=== PATIENT | male | born 1955 | race Two or more races ===

== ENCOUNTER 2017-07-07 16:15 | Inpatient (IN) | payer OTHER ==
[~2017-07-07] VITALS: Ht 180.3 cm; Wt 135.6 kg
[2017-07-07] MEDS ORDERED: ENALAPRILAT 1.25 MG/ML-1ML VIAL IV ONE (16:30)
[2017-07-07 16:46] LABS: Basophils # (auto) 0.1 uL; Basophils % (auto) 0.6 % (0.0-2.0); Eosinophils # (auto) 0.3 uL; Eosinophils % (auto) 3.2 % (0.0-7.0); Hemoglobin 11.4 g/dL (13.5-17.5); Lymphocytes % (auto) 10.8 % (10.0-50.0); Mean Corpuscular Hemoglobin 30.1 pg (28.0-32.0); Mean Corpuscular Hgb Conc. 32.6 g/dL (32.0-36.0); Mean Corpuscular Volume 92.4 fL (80.0-100.0); Monocytes # (auto) 0.6 uL; Monocytes % (auto) 6.5 % (0.0-12.0); Neutrophils # (auto) 7.3 uL; Neutrophils % (auto) 78.9 % (37.0-80.0); Platelet Count (auto) 236 10^3/uL (140-450); Red Blood Cells 3.79 10^6/uL (4.5-5.90); Red Cell Distribution Width 15.2 % (11.8-14.3); White Blood Cell 9.3 10^3/uL (4.4-10.8)
[2017-07-07] MEDS: NITROGLYCERIN 50MG/250ML 250 ML IV SCH (16:51)
[2017-07-07 16:59] LABS: INR 0.93 (0.9-1.15); Partial Thromboplastin Time 22.3 sec (23.78-33.04)
[2017-07-07] MEDS ORDERED: FUROSEMIDE 40 MG/4 ML VIAL IV ONE (17:00)
[2017-07-07 17:04] LABS: Alanine Aminotransferase 21 U/L (16-61); Albumin 2.5 g/dL (3.4-5.0); Anion Gap 9 (5-15); BUN/Creatinine Ratio 14.8; Blood Urea Nitrogen 77 mg/dL (7-18); Calcium 7.6 mg/dL (8.5-10.1); Carbon Dioxide 19 mmol/L (21-32); Chloride 113 mmol/L (98-107); GFR African American 14 mL/min; GFR Non-African American 12 mL/min; Glucose 160 mg/dL (74-106); Potassium 5.1 mmol/L (3.5-5.1); Sodium 141 mmol/L (136-145)
[2017-07-07 17:07] LABS: Alkaline Phosphatase 103 U/L (45-117); Aspartate Aminotransferase 28 U/L (15-37); Bilirubin, Total 0.1 mg/dL (0.2-1.0); Total Protein 7.1 g/dL (6.4-8.2)
[2017-07-08] VITALS (84 sets, daily range): BP systolic 112–203; BP diastolic 49–118
[2017-07-08] MEDS ORDERED: MORPHINE SULFATE 8mg/ml INJ SDV IV PRN (00:45)
[2017-07-08] MEDS ORDERED: NITROGLYCERIN 0.4 MG SL TAB SL PRN (00:45)
[2017-07-08 04:11] LABS: Basophils # (auto) 0 uL; Basophils % (auto) 0.5 % (0.0-2.0); Eosinophils # (auto) 0.1 uL; Eosinophils % (auto) 1.7 % (0.0-7.0); Hematocrit 29.1 % (41.0-53.0); Hemoglobin 9.6 g/dL (13.5-17.5); Lymphocytes # (auto) 0.8 uL; Mean Corpuscular Hemoglobin 30.1 pg (28.0-32.0); Mean Corpuscular Volume 91.5 fL (80.0-100.0); Monocytes # (auto) 0.9 uL; Monocytes % (auto) 10.6 % (0.0-12.0); Neutrophils # (auto) 6.4 uL; Neutrophils % (auto) 77.2 % (37.0-80.0); Platelet Count (auto) 241 10^3/uL (140-450); Red Blood Cells 3.18 10^6/uL (4.5-5.90); Red Cell Distribution Width 15.1 % (11.8-14.3); White Blood Cell 8.3 10^3/uL (4.4-10.8)
[2017-07-08 04:26] LABS: Calcium 7.5 mg/dL (8.5-10.1); Potassium 5.1 mmol/L (3.5-5.1)
[2017-07-08] MEDS: NITROGLYCERIN 50MG/250ML 250 ML IV SCH ×7 (04:36→23:18)
[2017-07-08] MEDS ORDERED: ONDANSETRON HCL 4 MG/2 ML VIAL IV PRN (06:15)
[2017-07-08] MEDS ORDERED: HYDROcodone-ACET 5/325MG TAB PO PRN (06:15)
[2017-07-08] MEDS ORDERED: hydrALAZINE HCL 25 MG TAB PO ONE (06:15)
[2017-07-08] MEDS ORDERED: ACETAMINOPHEN 500 MG TAB PO PRN (06:15)
[2017-07-08] MEDS: hydrALAZINE HCL 25 MG TAB PO SCH ×2 (08:56→21:33)
[2017-07-08 09:00] LABS: Urine Bacteria FEW /hpf (None Seen); Urine Blood 1+ /uL (Negative); Urine WBC 1 /hpf (0 - 3)
[2017-07-08] MEDS: CARVEDILOL 3.125 MG TAB PO SCH ×2 (09:58→21:35)
[2017-07-08] MEDS ORDERED: FUROSEMIDE 40 MG/4 ML VIAL IV SCH (10:00)
[2017-07-08] MEDS ORDERED: hydrALAZINE HCL 25 MG TAB PO SCH (10:00)
[2017-07-08] MEDS ORDERED: DEXTROSE (50%) 50ML SYRG IV PRN ×2 (10:30→20:45)
[2017-07-08] MEDS ORDERED: ATORVASTATIN 20 MG TAB PO ONE (10:30)
[2017-07-08] MEDS ORDERED: ASPirin 81 mg TAB PO ONE (10:30)
[2017-07-08] MEDS: cloNIDine HCL 0.1 MG TAB PO PRN ×2 (10:54→18:50)
[2017-07-08] MEDS ORDERED: METO-158 PO (11:28)
[2017-07-08] MEDS ORDERED: SIMV-13 PO (11:28)
[2017-07-08] MEDS ORDERED: HYDR50TA15 PO (11:28)
[2017-07-08] MEDS ORDERED: AMLO5TAB2 PO (11:28)
[2017-07-08] MEDS ORDERED: SODI650T PO (11:28)
[2017-07-08] MEDS: InsuLIN REG 1unit/0.01ml Soln (100units/ml) SC SCH ×3 (12:24→23:32)
[2017-07-08] MEDS: ACCU-CHEK COMFORT CURVE STRIP VI SCH ×3 (12:26→23:32)
[2017-07-08] MEDS ORDERED: ALBUTEROL SULF 2.5 MG/0.5ML(0.5%) NEB SOLN NEB ONE (14:30)
[2017-07-08] MEDS: FUROSEMIDE 40 MG/4 ML VIAL IV SCH (17:59)
[2017-07-08] MEDS: SODIUM BICARBONATE 650 MG TAB PO SCH (21:33)
[2017-07-08] MEDS ORDERED: ATORVASTATIN 20 MG TAB PO SCH (22:00)
[2017-07-09] VITALS (75 sets, daily range): BP systolic 98–184; BP diastolic 36–91
[2017-07-09] MEDS: NITROGLYCERIN 50MG/250ML 250 ML IV SCH (02:00)
[2017-07-09 04:08] LABS: Basophils # (auto) 0 uL; Basophils % (auto) 0.4 % (0.0-2.0); Eosinophils # (auto) 0.3 uL; Eosinophils % (auto) 3.7 % (0.0-7.0); Hematocrit 25.5 % (41.0-53.0); Hemoglobin 8.7 g/dL (13.5-17.5); Lymphocytes # (auto) 0.8 uL; Lymphocytes % (auto) 8.8 % (10.0-50.0); Mean Corpuscular Hemoglobin 30.5 pg (28.0-32.0); Mean Corpuscular Hgb Conc. 33.9 g/dL (32.0-36.0); Mean Corpuscular Volume 89.9 fL (80.0-100.0); Monocytes # (auto) 1.2 uL; Monocytes % (auto) 13.4 % (0.0-12.0); Neutrophils # (auto) 6.7 uL; Neutrophils % (auto) 73.7 % (37.0-80.0); Platelet Count (auto) 224 10^3/uL (140-450); Red Blood Cells 2.84 10^6/uL (4.5-5.90); Red Cell Distribution Width 14.6 % (11.8-14.3)
[2017-07-09 04:28] LABS: Calcium 7.4 mg/dL (8.5-10.1); Potassium 5.3 mmol/L (3.5-5.1)
[2017-07-09 04:30] LABS: BUN/Creatinine Ratio 14.3
[2017-07-09 04:32] LABS: Bilirubin, Total 0.3 mg/dL (0.2-1.0); Total Protein 5.8 g/dL (6.4-8.2)
[2017-07-09] MEDS: InsuLIN REG 1unit/0.01ml Soln (100units/ml) SC SCH ×3 (06:00→18:41)
[2017-07-09] MEDS: ACCU-CHEK COMFORT CURVE STRIP VI SCH ×3 (06:00→18:40)
[2017-07-09] MEDS: FUROSEMIDE 40 MG/4 ML VIAL IV SCH ×2 (06:00→18:41)
[2017-07-09] MEDS: hydrALAZINE HCL 25 MG TAB PO SCH (06:00)
[2017-07-09] MEDS ORDERED: CALCIUM GLUC 4.65meq/50ml D5AE 50 ML IV ONE (08:45)
[2017-07-09] MEDS ORDERED: SODIUM BICARBONATE 8.4% INJ 50ML SYRINGE IV ONE (08:45)
[2017-07-09] MEDS ORDERED: NOREPINEPHRINE 8 MG/250ML KIT 250 ML IV SCH (09:23)
[2017-07-09] MEDS ORDERED: LACTATED RINGER'S 1,000 ML IV ONE (09:30)
[2017-07-09] MEDS ORDERED: ASPirin 81 mg TAB PO SCH (10:00)
[2017-07-09] MEDS ORDERED: POTASSIUM CHL 20 Meq TABLET PO SCH (10:00)
[2017-07-09] MEDS: SODIUM BICARBONATE 650 MG TAB PO SCH (10:47)
[2017-07-09] MEDS: CARVEDILOL 3.125 MG TAB PO SCH (10:47)
[2017-07-09] MEDS: cloNIDine HCL 0.1 MG TAB PO PRN (10:52)
[2017-07-09] MEDS ORDERED: NIFEdipine ER 30 MG TAB PO ONE (12:30)
[2017-07-09] MEDS ORDERED: BUMETANIDE (0.25MG/ML) 4 ML VIAL IV ONE (12:30)
[2017-07-09] MEDS ORDERED: hydrALAZINE HCL 25 MG TAB PO SCH ×2 (14:00→18:00)
[2017-07-09] MEDS ORDERED: ISOSORBIDE MONONITRATE 60 MG TAB PO SCH (22:00)
[2017-07-09] MEDS ORDERED: NIFEdipine ER 30 MG TAB PO SCH (22:00)
== END 2017-07-09 19:38 | disposition short-term general hospital (02) | DRG 189 ==
LOC: ER 16:16 → TELE 16:17 → ICU WEST 07-08 02:25
PROVIDERS: ADMIT Nurse Practitioner Family; ATTEND Nurse Practitioner Family
DX: J96.00 Acute respiratory failure, unspecified whether with hypoxia or hypercapnia (principal); I13.2 Hypertensive heart and chronic kidney disease with heart failure and with stage 5 chronic kidney disease, or end stage renal disease; E11.22 Type 2 diabetes mellitus with diabetic chronic kidney disease; E87.2 Acidosis; E11.65 Type 2 diabetes mellitus with hyperglycemia; I50.33 Acute on chronic diastolic (congestive) heart failure; N18.6 End stage renal disease; D64.9 Anemia, unspecified; E21.3 Hyperparathyroidism, unspecified; E66.9 Obesity, unspecified; E87.5 Hyperkalemia; Z79.84 Long term (current) use of oral hypoglycemic drugs; Z79.82 Long term (current) use of aspirin; Z79.899 Other long term (current) drug therapy
CPT/HCPCS: 36415; 36600; 71045; 80048; 80053; 81001; 82805; 82962; 83036; 83735; 83880; 84484; 85025; 85610; 85730; 87081; 93306; 94660; 96374; 96375; 99291; J0610; J1815

== ENCOUNTER 2018-06-11 14:01 | Inpatient (IN) | payer OTHER ==
[~2018-06-11] VITALS: Ht 180.3 cm; Wt 118.3 kg
[~2018-06-11 14:01] MED LIST: AMLO5TAB13 PO; HYDR50TA15 PO; METO-158 PO; SIMV-13 PO; SODI650T PO
[2018-06-11 14:49] LABS: Basophils # (auto) 0.1 uL; Basophils % (auto) 1.4 % (0.0-2.0); Platelet Count (auto) 179 10^3/uL (140-450)
[2018-06-11 14:51] LABS: Eosinophils # (auto) 0.1 uL; Eosinophils % (auto) 1.9 % (0.0-7.0); Hemoglobin 10.9 g/dL (13.5-17.5); Lymphocytes # (auto) 0.6 uL; Lymphocytes % (auto) 9.5 % (10.0-50.0); Mean Corpuscular Hemoglobin 23.2 pg (28.0-32.0); Mean Corpuscular Hgb Conc. 28.8 g/dL (32.0-36.0); Mean Corpuscular Volume 80.6 fL (80.0-100.0); Monocytes # (auto) 0.4 uL; Monocytes % (auto) 6.2 % (0.0-12.0); Neutrophils # (auto) 5.1 uL; Nucleated Red Blood Cells % 0.1 %; Red Blood Cells 4.72 10^6/uL (4.5-5.90); White Blood Cell 6.2 10^3/uL (4.4-10.8)
[2018-06-11 14:52] LABS: Chloride 114 mmol/L (98-107); Sodium 143 mmol/L (136-145)
[2018-06-11 14:56] LABS: Albumin 2.8 g/dL (3.4-5.0); Anion Gap 7 (5-15); Blood Alcohol < 3.0 mg/dL (0-5); Calcium 7.8 mg/dL (8.5-10.1); Carbon Dioxide 22 mmol/L (21-32); Glucose 103 mg/dL (74-106); Magnesium 2.7 mg/dL (1.6-2.6)
[2018-06-11 14:59] LABS: Alanine Aminotransferase 8 U/L (16-61); Aspartate Aminotransferase 10 U/L (15-37); BUN/Creatinine Ratio 19.4; Bilirubin, Total 0.3 mg/dL (0.2-1.0); GFR African American 13 mL/min; GFR Non-African American 11 mL/min; Total Protein 7.7 g/dL (6.4-8.2)
[2018-06-11 15:01] LABS: Alkaline Phosphatase 96 U/L (45-117)
[2018-06-11 15:07] LABS: Potassium 5.6 mmol/L (3.5-5.1)
[2018-06-11 15:08] LABS: Blood Urea Nitrogen 111 mg/dL (7-18)
[2018-06-11] MEDS ORDERED: ALBUTEROL SULF 2.5 MG/0.5ML(0.5%) NEB SOLN NEB STA (15:23)
[2018-06-11] MEDS ORDERED: InsuLIN REG 1unit/0.01ml Soln (100units/ml) IV ONE (15:30)
[2018-06-11] MEDS ORDERED: SODIUM BICARBONATE 8.4% INJ 50ML SYRINGE IV ONE (15:30)
[2018-06-11] MEDS ORDERED: CALCIUM GLUC 4.65meq/50ml D5AE 50 ML IV ONE (15:30)
[2018-06-11] MEDS ORDERED: DEXTROSE (50%) 50ML SYRG IV ONE (15:30)
[2018-06-11] MEDS ORDERED: SODIUM ZIRCONIUM CYCL 10 GM PAK PO ONE (16:15)
[2018-06-11] MEDS ORDERED: ENOXAPARIN SOD 30 MG/0.3 ML SYRINGE SC ONE (16:45)
[2018-06-11] MEDS ORDERED: NITROGLYCERIN 0.4 MG SL TAB SL PRN (16:45)
[2018-06-11] MEDS ORDERED: MORPHINE SULF INJ 2 MG/ML SYRINGE 1ML IV PRN (16:45)
[2018-06-11] MEDS ORDERED: FUROSEMIDE 100 MG/10ML VIAL IV ONE (17:00)
[2018-06-11] MEDS: CLINDAMYCIN 300MG IV 50 ML IV SCH (17:19)
[2018-06-11 18:21] LABS: Albumin 2.8 g/dL (3.4-5.0); Calcium 8.1 mg/dL (8.5-10.1); Potassium 5.3 mmol/L (3.5-5.1)
[2018-06-11 18:26] LABS: BUN/Creatinine Ratio 20.5; Bilirubin, Total 0.3 mg/dL (0.2-1.0); Total Protein 7.7 g/dL (6.4-8.2)
[2018-06-11] MEDS ORDERED: MIDAZOLAM DRIP 50 mg/50mL 50 ML IV ONE (18:27)
[2018-06-11] MEDS ORDERED: SUCCINYLCHOLINE CHLORIDE 20 MG/ML 10ML VIAL IV ONE ×2 (18:27→19:00)
[2018-06-11] MEDS ORDERED: ETOMIDATE (2MG/ML) 20ML VIAL IV ONE ×2 (18:27→19:00)
[2018-06-11] MEDS ORDERED: fentaNYL CITRATE 100 MCG/2 ML VL ONE (19:10)
[2018-06-11] MEDS ORDERED: fentaNYL Drip 2500mCg/250mlNS 250 ML IV ONE (19:10)
[2018-06-11] MEDS: MIDAZOLAM DRIP 50 mg/50mL 50 ML IV SCH (19:28)
[2018-06-11] MEDS ORDERED: LEVOFLOXACIN 500MG 100 ML IV SCH (19:30)
[2018-06-11] MEDS: fentaNYL Drip 2500mCg/250mlNS 250 ML IV SCH (20:01)
[2018-06-11 20:36] LABS: Urine Bacteria FEW /hpf (None Seen); Urine Blood TRACE /uL (Negative); Urine Hyaline Cast FEW /lpf (0 - 2); Urine Specific Gravity 1.013 (1.001-1.035); Urine WBC 52 /hpf (0 - 3); Urine WBC Clumps PRESENT /hpf (None Seen)
[2018-06-11] MEDS ORDERED: NOREPINEPHRINE 8 MG/250ML KIT 250 ML IV ONE (21:27)
[2018-06-11 21:45] VITALS: BP 89/53
[2018-06-11] MEDS ORDERED: NOREPINEPHRINE 8 MG/250ML KIT 250 ML IV SCH (21:45)
[2018-06-11] MEDS: BUMETANIDE (0.25MG/ML) 4 ML VIAL IV SCH (21:53)
--- NOTE | 2018-06-11 22:50 | NUR ---
Pt being admitted to ICU IRISJOHNNIE NEWBY admitted to ICU via rney on otolaryngology teacher and mechanical ventilator. Patient transferred to bed, connected to ICU monitoring and oxygen. ASSESSMENT: RECEIVED PT SEDATED ON VERSED AND FENTANYL. MECHANICALLY VENTILATED. PT DOES NOT OPEN EYES TO STIMULI. LEVOPHED INFUSING AT 2MCG/HR. B/P IN 130'S WILL TITRATE OFF TOLERATED. PLACED RECTAL THERMOMETER IN DUE TO UNABLE TO OBTAIN TEMPERATURE WITH PROBE. TEMPERATURE 94.0 AT THIS TIME. WARMING MEASURES APPLIED. WILL SPONTANEOUSLY MOVE EXTREMITIES. COLOSTOMY TO LEFT LOWER QUADRANT DRAINING LIGHT BROWN LIQUID. CHILDRESS IN PLACE DRAINING LIGHT YELLOW URINE. FULL ASSESSMENT DONE SEE INTERVENTIONS. SKIN ASSESSMENT DONE SEE SKIN ASSESSMENT. ALL ALARMS ON AND AUDIBLE. PT IN FULL VIEW OF RN.
--- NOTE | 2018-06-11 23:09 | NUR ---
RT NOTE RT RESPONDED TO OVERHEAD PAGE STAT TO ER. RT RESPONDED WITH RT NAOMY. WHEN WE ARRIVED TO ER WE WERE TOLD BY STAFF THAT THEY HAD BEEN TRYING TO PAGE US FOR SOME TIME NOW. NEITHER MYSELF OR RT NAOMY HAD RECEIVED ANY PAGE PRIOR TO THE OVERHEAD PAGE. PT WAS WAITING TO BE TRANSPORTED TO ICU. PT WAS TRANSPORTED AND PLACED BACK ON VENT IN ICU WITHOUT INCIDENT.
--- NOTE | 2018-06-11 23:30 | NUR ---
FAMILY AT BED SIDE.
[2018-06-12] VITALS (105 sets, daily range): BP systolic 87–147; BP diastolic 37–68
--- NOTE | 2018-06-12 00:30 | NUR ---
OBTAINED TELEPHONE CONSENT FOR DIALYSIS CATHETER INSERTION, IF POSSIBLE PLACEMENT NEEDED. . VALERIO, VERBALIZED UNDERSTANDING ANG GAVE CONSENT, WITH 2 NURSE VERIFICATION.
[2018-06-12] MEDS: CLINDAMYCIN 300MG IV 50 ML IV SCH ×3 (00:46→17:47)
[2018-06-12] MEDS: SODIUM ZIRCONIUM CYCL 10 GM PAK PO SCH ×4 (00:46→17:48)
[2018-06-12] MEDS ORDERED: SEVE800T10 PO (01:47)
[2018-06-12] MEDS ORDERED: CLON0.1D7 TD (01:47)
[2018-06-12] MEDS ORDERED: NIFE60TA59 PO (01:47)
[2018-06-12] MEDS ORDERED: DIPH25TA24 PO (01:47)
[2018-06-12] MEDS ORDERED: NYSTOIN10 TOP (01:47)
[2018-06-12] MEDS ORDERED: SERT-274 PO (01:47)
[2018-06-12] MEDS ORDERED: CLIN1CAP4 PO (01:47)
[2018-06-12] MEDS ORDERED: DOCU100T15 PO (01:47)
[2018-06-12] MEDS ORDERED: CLON0.3D4 PO (01:47)
[2018-06-12] MEDS ORDERED: FURO40TA4 PO (01:47)
[2018-06-12] MEDS: MIDAZOLAM DRIP 50 mg/50mL 50 ML IV SCH ×4 (02:00→22:00)
--- NOTE | 2018-06-12 04:20 | NUR ---
TEMPERATURE RE CHECK. PT IS 97.2 AT THIS TIME. WILL CONTINUE WARMING MEASURES.
[2018-06-12 05:04] LABS: Potassium 5.2 mmol/L (3.5-5.1)
[2018-06-12 05:13] LABS: Albumin 2.3 g/dL (3.4-5.0); BUN/Creatinine Ratio 19.5; Bilirubin, Total 0.2 mg/dL (0.2-1.0); Calcium 7.7 mg/dL (8.5-10.1); Total Protein 6.4 g/dL (6.4-8.2)
[2018-06-12] MEDS: BUMETANIDE (0.25MG/ML) 4 ML VIAL IV SCH ×3 (05:52→18:03)
[2018-06-12 05:54] LABS: INR 1.02 (0.9-1.15); Partial Thromboplastin Time 34.3 sec (23.78-33.04); Prothrombin Time 10.9 sec (9.27-12.13)
--- NOTE | 2018-06-12 07:29 | NUR ---
REPORT GIVEN TO NORAH CRISOSTOMO TO ASSUME CARE.
--- NOTE | 2018-06-12 08:00 | NUR ---
OPENING NOTE Received patient on mechanical ventilator sedated on Versed at 15mg and Fentanyl at 50mcg. Patient does not open eyes, does not follow commands, no trancing, withdrawals to pain, Pupil reactive to light to the left eye/right eye is cloudy patient blind, no gag/cough reflex. Sinus rhythm in the 60's, pulses palpable on upper/lower extremities with general edema throughout. OG tube checked and verified via air bolus: clamped. Abdomen soft, non tender, non distended bowel sounds present. Lozano draining clear yellow urine. Right subclavian(TLC): good blood return and flushes easily. Blisters to right/left inner thighs covered in ABD pad and tape, pressure sore to the left heel, skin tear right elbow and scab to the left calf open to air. Call light within reach and bed at lowest position. Will continue to monitor patient.
--- NOTE | 2018-06-12 09:30 | NUR ---
FAMILY Received phone call from patients brother, provided correct password, updated on patient status.
--- NOTE | 2018-06-12 09:30 | NUR ---
RESPIRATORY RT Christofer at bedside decreased Fio2 down to 35%, patient tolerating well. Will continue to titrate as tolerated.
[2018-06-12] MEDS ORDERED: FAMOTIDINE (10MG/ML) 2ML VL IV SCH (10:00)
--- NOTE | 2018-06-12 10:00 | NUR ---
MD Dr. Bridges at bedside updated on patient condition with new orders, MD to input into system. MD would like to transfer patient to [facility]. MD spoke to patients and explain the plan of care and agrees to transfer when bed is available.
--- NOTE | 2018-06-12 10:03 | NUR ---
I faxed transfer order to [facility].
--- NOTE | 2018-06-12 10:45 | NUR ---
MD Dr. Swan at bedside updated on patient condition with new orders, MD to input into system.
--- NOTE | 2018-06-12 11:10 | NUR ---
ECHO bakery technician at bedside to obtain study.
--- NOTE | 2018-06-12 13:30 | NUR ---
WOUND CARE Wound care nurse Tonja at bedside.
--- NOTE | 2018-06-12 14:00 | NUR ---
WOUND CARE NOTE: Wound care consult received from nursing. Patient is a 62 yo male admitted for end stage renal disease and has a medical history significant for chronic kidney disease stage 4, diabetes, hypertension, CHF, hyperlipidemia, and cellulitis. Patient seen with bedside RN Denisha and industrial recruiter, Kat. Patient is intubated. No signs/symptoms of pain. Last Jeromy score is 13. Patient with bilateral lower extremity pitting 3+ edema. Blisters noted to bilateral inner thighs and right lateral calf. Right thigh blister has ruptured with ~80% of skin flap in place. All other blisters intact and filled with serous fluid. Patient also noted to have a pressure injury to left heel measuring 1.5x3cm cover with brown-black necrotic tissue noted and a skin tear to right elbow measuring 0.5x1cm. No other open wounds noted. RECOMMENDATIONS: Dietary Consult; Turn q2hrs; Nursing to cleanse blisters with wound cleanser, pat dry, cover with OPTILOCK dressing, secure with paper tape, change every other day and PRN; Nursing to cleanse left heel pressure injury with wound cleanser, pat dry, apply THERAHONEY GEL, cover with OPTIFOAM GENTLE dressing, change every other day/PRN; Nursing to cleanse skin tear with wound cleanser, pat dry, apply THERAHONEY GEL, cover with OPTIFOAM GENTLE dressing, change every other day/PRN; wound care team to follow. Addendum: 06/12/18 at 1537 by JITENDRA MARTINEZ RN Amended: Links added.
--- NOTE | 2018-06-12 15:13 | NUR ---
Nutrition consult/assessment Notes please see attached link for complete assessment Est. Needs based on AdBW (99 kg): 6706-7768 kcal (23-25 kcal/kgAdBW), 79-99 gms pro (0.8-1.0 gms/kgAdBW r/t elev RFT CKD). Will continue to monitor pertinent labs and reassess nutrient need prn Addendum: 06/12/18 at [address] Amended: Links added.
[2018-06-12 15:49] LABS: BUN/Creatinine Ratio 19.5; Calcium 7.5 mg/dL (8.5-10.1)
[2018-06-12 17:19] LABS: Potassium 5.6 mmol/L (3.5-5.1)
--- NOTE | 2018-06-12 17:20 | NUR ---
CRITICAL LAB Received critical lab from laboratory assistant: Potassium level of 5.6 and BUN of 112.
--- NOTE | 2018-06-12 17:28 | NUR ---
Paged Dr. Swan at [phone] exchanged connected this RN with . Spoke to Dr. Swan regarding critical labs and new orders received by , this RN to input into system.
[2018-06-12] MEDS ORDERED: InsuLIN REG 1unit/0.01ml Soln (100units/ml) SC ONE (17:45)
[2018-06-12] MEDS ORDERED: ALBUTEROL SULF 2.5 MG/0.5ML(0.5%) NEB SOLN NEB ONE (17:45)
[2018-06-12] MEDS ORDERED: SODIUM BICARBONATE 8.4 % INJ 50ML VIAL IV ONE (17:45)
[2018-06-12] MEDS ORDERED: DEXTROSE (50%) 50ML SYRG IV ONE (17:45)
[2018-06-12] MEDS: SEVELAMER 800 MG TAB PO SCH (17:48)
--- NOTE | 2018-06-12 18:10 | NUR ---
[facility] Received phone call from Edna Hyatt, assistant case manager, asking if patient was stable for transfer and asked if MD placed an order to transfer patient. Informed her that patient has had transport orders from this morning and it was faxed to them at 10 AM. Updated on patient status and information given as appropriate to transfer patient. Awaiting for call back with transfer information.
--- NOTE | 2018-06-12 18:40 | NUR ---
MD Dr. Iqbal at bedside updated on patient condition with no new orders but states " If patient is still here tomorrow ask Dr. Bridges for a cardiac consult because this was his patient a couple of weeks ago and his EF was less than 20%. titrated Fio2 down to 30%.
--- NOTE | 2018-06-12 19:30 | NUR ---
OPEN NOTE RECEIVED PT SEDATED ON VERSED AND FENTANYL. MECHANICALLY VENTILATED. PT DOES NOT OPEN EYES TO STIMULI. RECTAL THERMOMETER IN READING 98.8. WILL SPONTANEOUSLY MOVE EXTREMITIES. COLOSTOMY TO LEFT LOWER QUADRANT DRAINING LIGHT BROWN LIQUID. CHILDRESS IN PLACE DRAINING LIGHT YELLOW URINE. FULL ASSESSMENT DONE SEE INTERVENTIONS. SKIN ASSESSMENT DONE SEE SKIN ASSESSMENT. ALL ALARMS ON AND AUDIBLE. PT IN FULL VIEW OF RN.
--- NOTE | 2018-06-12 22:30 | NUR ---
REPORT GIVEN TO NORAH LATIF, RECEIVING NURSE FOR PT AT [facility], RM #[id number]
--- NOTE | 2018-06-12 22:30 | NUR ---
RECEIVED CALL FROM STONE[facility] FROM [facility], UPDATED ON BED PLACEMENT FOR PT AND RECEIVING NURSE AT [facility]. Addendum: 06/12/18 at 2347 by ROXANN ACEVEDO RN [facility] TO [facility] SET UP OPERATOR GEAR TOOL PT IN 60-90 MINS.
--- NOTE | 2018-06-12 23:00 | NUR ---
CALLED [facility] FOR ETA. [facility] STATED THEY DO NOT HAVE A [facility] NURSE TO TRANSFER PT TONIGHT. NEXT NURSE AVAILABLE WILL BE AT 0730 TOMORROW. CALLED STONEY AT [facility] TO INFORM OF NO NURSE AVAILABLE FOR TRANSFER. STONEY STATED SHE WILL CALL THEIR TRANSP[place] TEAM [place] [facility] SEE IF THEIR IS AN AVAILABLE RN TONIGHT TO TRANSFER. WILL AWAIT PHONE CALL.
--- NOTE | 2018-06-12 23:50 | NUR ---
CALL BACK FROM [place]. STONE[facility] STATED THERE IS NO NURSE AVAILABLE AT [facility] ALSO. AND THE NEXT AVAILABLE TIME IS 0730 TOMORROW FOR [facility] TO SMART ENERGY SPECIALIST PT. CALLED PT'S , VALERIO AND UPDATED HER. PT'S IS AWARE OF PLAN.
[2018-06-13] VITALS (41 sets, daily range): BP systolic 104–150; BP diastolic 45–70
[2018-06-13] MEDS: SODIUM ZIRCONIUM CYCL 10 GM PAK PO SCH ×2 (00:49→05:09)
[2018-06-13] MEDS: CLINDAMYCIN 300MG IV 50 ML IV SCH (00:50)
[2018-06-13 04:26] LABS: Basophils # (auto) 0 uL; Basophils % (auto) 0.7 % (0.0-2.0); Eosinophils # (auto) 0.2 uL; Eosinophils % (auto) 3.2 % (0.0-7.0); Hemoglobin 8.9 g/dL (13.5-17.5); Lymphocytes % (auto) 16.8 % (10.0-50.0); Mean Corpuscular Hemoglobin 23.6 pg (28.0-32.0); Mean Corpuscular Hgb Conc. 29.7 g/dL (32.0-36.0); Mean Corpuscular Volume 79.4 fL (80.0-100.0); Monocytes # (auto) 0.9 uL; Monocytes % (auto) 14.1 % (0.0-12.0); Neutrophils % (auto) 65.2 % (37.0-80.0); Nucleated Red Blood Cells % 0.1 %; Platelet Count (auto) 146 10^3/uL (140-450); Red Blood Cells 3.79 10^6/uL (4.5-5.90); White Blood Cell 6.1 10^3/uL (4.4-10.8)
[2018-06-13 04:28] LABS: Red Cell Distribution Width 22.2 % (11.8-14.3)
--- NOTE | 2018-06-13 05:00 | NUR ---
CARES PT GIVEN BED BATH AND PARTIAL LINEN CHANGE PERFORMED AT THIS TIME. PT TOLERATED WELL. FOUL ORDER NOTED TO [facility].
[2018-06-13 05:03] LABS: Alanine Aminotransferase < 6 U/L (16-61); Albumin 2.2 g/dL (3.4-5.0); Anion Gap 8 (5-15); Aspartate Aminotransferase 10 U/L (15-37); BUN/Creatinine Ratio 19.1; Calcium 7.4 mg/dL (8.5-10.1); Carbon Dioxide 22 mmol/L (21-32); Chloride 115 mmol/L (98-107); GFR African American 12 mL/min; GFR Non-African American 10 mL/min; Potassium 5.5 mmol/L (3.5-5.1); Sodium 145 mmol/L (136-145)
[2018-06-13 05:05] LABS: Alkaline Phosphatase 87 U/L (45-117); Bilirubin, Total 0.2 mg/dL (0.2-1.0); Total Protein 6.3 g/dL (6.4-8.2)
[2018-06-13] MEDS: MIDAZOLAM DRIP 50 mg/50mL 50 ML IV SCH (05:08)
[2018-06-13] MEDS: BUMETANIDE (0.25MG/ML) 4 ML VIAL IV SCH (05:09)
[2018-06-13] MEDS: fentaNYL Drip 2500mCg/250mlNS 250 ML IV SCH (05:10)
[2018-06-13 05:14] LABS: Blood Urea Nitrogen 113 mg/dL (7-18); Glucose 32 mg/dL (74-106)
[2018-06-13] MEDS ORDERED: DEXTROSE 50% SYRINGE 50 ML IV ONE (05:25)
--- NOTE | 2018-06-13 06:20 | NUR ---
CRITICAL BLOOD SUGAR LEVEL. 1 AMP DEXTROSE GIVEN. HOSPITALIST AWARE. NEW ORDERS RECEIVED. BLOOD SUGAR RECHECK. 56 AT THIS TIME. WILL CARRY OUT ORDERS PER MD.
[2018-06-13] MEDS ORDERED: DEXTROSE (50%) 50ML SYRG IV ONE (06:30)
[2018-06-13] MEDS ORDERED: D5W 5% 1,000 ML IV SCH (06:30)
--- NOTE | 2018-06-13 07:03 | NUR ---
FAMILY VALERIO, CALLED FOR UPDATE ON PT. ALL QUESTIONS AND CONCERNS ADDRESSED AT THIS TIME
[2018-06-13] MEDS: SEVELAMER 800 MG TAB PO SCH (08:00)
--- NOTE | 2018-06-13 08:25 | NUR ---
[facility] at bedside. Report given to [facility] bus transportation manager.
--- NOTE | 2018-06-13 09:05 | NUR ---
[facility] has left with patient connected to portable hall monitor and ventilator, vital signs stable and all belongings sent with patient and paperwork given to RN.
== END 2018-06-13 09:05 | disposition short-term general hospital (02) | DRG 208 ==
LOC: EDBD 14:01 → ER 14:01 → EDUNIT# 14:01 → TELE 16:41 → ICU WEST 22:49
PROVIDERS: ADMIT Nurse Practitioner Acute Care; ATTEND Internal Medicine
PROC: 5A1945Z Respiratory Ventilation, 24-96 Consecutive Hours (ICD-10-PCS; principal; 2018-06-11)
PROC: 0BH17EZ Insertion of Endotracheal Airway into Trachea, Via Natural or Artificial Opening (ICD-10-PCS; 2018-06-11)
DX: J96.00 Acute respiratory failure, unspecified whether with hypoxia or hypercapnia (principal); G93.41 Metabolic encephalopathy; I50.43 Acute on chronic combined systolic (congestive) and diastolic (congestive) heart failure; J18.9 Pneumonia, unspecified organism; N18.6 End stage renal disease; N17.9 Acute kidney failure, unspecified; I13.2 Hypertensive heart and chronic kidney disease with heart failure and with stage 5 chronic kidney disease, or end stage renal disease; E87.2 Acidosis; N39.0 Urinary tract infection, site not specified; E44.0 Moderate protein-calorie malnutrition; L03.116 Cellulitis of left lower limb; L03.115 Cellulitis of right lower limb; E11.22 Type 2 diabetes mellitus with diabetic chronic kidney disease; E78.5 Hyperlipidemia, unspecified; E87.5 Hyperkalemia; E03.9 Hypothyroidism, unspecified; E78.00 Pure hypercholesterolemia, unspecified; D63.8 Anemia in other chronic diseases classified elsewhere; E66.9 Obesity, unspecified; Z68.36 Body mass index [BMI] 36.0-36.9, adult; Z99.2 Dependence on renal dialysis; Z79.899 Other long term (current) drug therapy
CPT/HCPCS: 31500; 36415; 36600; 51702; 70450; 71045; 80048; 80053; 80320; 81001; 82805; 82962; 83036; 83605; 83735; 84100; 84443; 84484; 85025; 85610; 85730; 87040; 87070; 87081; 87086; 87088; 87186; 87205; 93005; 93306; 93970; 94002; 94003; 94640; 94644; 96372; 96374; 96375; A6257; G0378; J0330; J0610; J1815; J1956; J2250; J3490

== ENCOUNTER 2018-07-23 13:23 | Emergency (ER) | payer OTHER ==
[~2018-07-23] VITALS: Ht 177.8 cm; Wt 104.3 kg
[~2018-07-23 13:23] MED LIST changes: +CLIN1CAP4 PO; +CLON0.1D7 TD; +CLON0.3D4 PO; +DIPH25TA24 PO; +DOCU100T15 PO; +FURO40TA4 PO; +NIFE60TA59 PO; +NYSTOIN10 TOP; +SERT-274 PO; +SEVE800T10 PO
[2018-07-23 13:41] VITALS: BP 144/86
[2018-07-23] MEDS ORDERED: HYDROcodone-ACET 10/325MG TAB PO ONE (14:30)
[2018-07-23 16:13] LABS: Urine Bacteria MOD /hpf (None Seen); Urine Blood 2+ /uL (Negative); Urine WBC 6381 /hpf (0 - 3); Urine WBC Clumps PRESENT /hpf (None Seen)
[2018-07-23 17:22] LABS: Urine Specific Gravity 1.011 (1.001-1.035)
== END 2018-07-23 15:51 | disposition home or self-care (01) ==
LOC: EDBD 13:23 → ER 13:39
DX: N39.0 Urinary tract infection, site not specified (principal); E11.22 Type 2 diabetes mellitus with diabetic chronic kidney disease; I13.2 Hypertensive heart and chronic kidney disease with heart failure and with stage 5 chronic kidney disease, or end stage renal disease; N18.6 End stage renal disease; I50.9 Heart failure, unspecified
CPT/HCPCS: 81001

== ENCOUNTER 2019-08-05 20:10 | Emergency (ER) | payer OTHER ==
[~2019-08-05] VITALS: Ht 182.9 cm; Wt 102.1 kg
[~2019-08-05 20:10] MED LIST changes: -AMLO5TAB13 PO; +AMLO5TAB15 PO; -CLIN1CAP4 PO; +CLIN300C8 PO; +NIFE1TAB30 PO; -NIFE60TA59 PO; +NYSTOIN TOP; -NYSTOIN10 TOP
[2019-08-05] MEDS ORDERED: HYDROmorphone HCL 2 MG/ML VL IV ONE (22:15)
[2019-08-05] MEDS ORDERED: ONDANSETRON HCL 4 MG/2 ML VIAL IV ONE (22:15)
[2019-08-05 23:55] VITALS: BP 97/43
== END 2019-08-06 00:30 | disposition short-term general hospital (02) ==
LOC: EDBD 20:10 → ER 20:14
DX: S72.91XA Unspecified fracture of right femur, initial encounter for closed fracture (principal); I13.2 Hypertensive heart and chronic kidney disease with heart failure and with stage 5 chronic kidney disease, or end stage renal disease; E11.22 Type 2 diabetes mellitus with diabetic chronic kidney disease; N18.6 End stage renal disease; I50.9 Heart failure, unspecified; W01.0XXA Fall on same level from slipping, tripping and stumbling without subsequent striking against object, initial encounter; Y93.89 Activity, other specified; Y92.090 Kitchen in other non-institutional residence as the place of occurrence of the external cause; Y99.8 Other external cause status
CPT/HCPCS: 29505; 73552; 73560; 96374; 96375; 99285; J1170; J2405